=== PATIENT | male | born 1960 | race Caucasian/White ===

== ENCOUNTER → 2017-11-06 | Day surgery (SDC) | payer OTHER ==
[~2017-11-06] MED LIST: ACETYL L-CARNI500 MG PO; ADDERALL; ALLEGRA-D 12 H1 EAC1 PO; CALCIUM 600 +1 EAC1 PO; CHOLESTEROL MED; CINNAMON500 MG PO; FISH OIL 1,001000 M2 PO; FOLIC ACID 40400 MC1 PO; KEFLEX500 MG PO; LOSARTAN POTAS100 MG PO; MAGNESIUM CITR100 MG PO; OMEPRAZOLE40 MG PO; PHENTERMINE H37.5 MG PO; PREDNISONE; PROBIOTIC1 EAC1 PO; SIMVASTATIN40 MG PO; SINGULAIR 10 MG10 M1 PO; SUPER B COMPLE150 MG PO; SYMBICORT80 MCG/4.1 INH; TRAMADOL 50 MG50 MG PO; VENTOLIN HFA 1818 GM INH; VITAMIN E400 UNIT PO; VITAMINC500 PO
[2017-11-06 07:58] LABS: HEMATOCRIT 38.5 % (42.0-52.0); HEMOGLOBIN 13.1 gm/dL (14.0-18.0); MCH 29.7 pg (26.0-34.0); MCHC 34.1 g/dL (28.0-37.0); MCV 87.1 fL (80.0-100.0); MPV 7.9 fl. (7.2-11.1); RBC 4.42 mil/uL (4.50-6.00); RDW-CV 13.8 % (10.5-14.5); WBC 3.8 thou/uL (4.0-11.0)
[2017-11-06 08:04] LABS: CALCIUM 8.4 mg/dL (8.5-10.1); CREATININE 0.9 mg/dL (0.6-1.3); POTASSIUM 4.1 mmol/L (3.5-5.1)
--- NOTE | 2017-11-08 10:08 | PATH ---
[address] [address] PATHOLOGY RPT PROCEDURE Name: GUILLERMINA JEFFERSON Room: [facility]#: [id number] Admission: 11/06/17 Date of : 60 Discharge: Report #: [id number] Path Case #: [id number] [facility] Accession Number: [id number] . 01 Material submitted: . SKIN POSTERIOR NECK . 01 Pre-operative diagnosis: . Cyst left neck . 01 Post-operative diagnosis: . Infected cyst . 02 Diagnosis: Skin, posterior neck: - Benign skin with cystic granuloma associated with chronic and acute inflammation and fibrosis compatible with ruptured epidermal inclusion cyst. . (GRICEL:mml; 11/07/17) [facility]/11/08/2017 . 02 Electronically signed: . Mike Nelson MD, Pathologist NPI- [id number] . 01 Gross description: . Received in formalin "Guillermina Jefferson" and additionally labeled on the requisition as, "skin posterior neck" is an unoriented ellipse of skin measuring 2.1 x 0.7 x 0.5 cm. The specimen is inked, serially sectioned (7 pieces) and entirely submitted A1-A2, A2 tips. (HEMALATHA; 11/06/2017) JBR/JBR . 02 Pathologist provided ICD-10: L72.0 . 02 CPT . 710251 Specimen Comment: A courtesy copy of this report has been sent to Specimen Comment: [phone], . Specimen Comment: Report sent to and Performed at: [address], [place] [id number] MD Don Ghosh MD Phone: [phone] Performed at: [address] [address] PATHOLOGY RPT PROCEDURE Name: GUILLERMINA JEFFERSON Room: [facility]#: [id number] Admission: 11/06/17 Date of : 60 Discharge: Report #: [id number] Path Case #: [id number] [address], [place] [id number] MD Mike Nelson MD Phone: [phone]
--- NOTE | 2017-11-18 10:40 | OP ---
[address] [address] OPERATIVE REPORT Name: GUILLERMINA BOONE Room: [facility]#: [id number] Admission: 11/06/17 Attend Phys: João Barber DO Discharge: Date of : 60 Report #: [id number] THIS REPORT FOR: //name// CC: João Bernal DATE OF SERVICE: 11/06/2017 REFERRING PHYSICIAN: Dr. Arnie Bernal. PREOPERATIVE DIAGNOSIS: Sebaceous cyst of the posterior neck. POSTOPERATIVE DIAGNOSIS: Infected sebaceous cyst of the posterior neck. PROCEDURE: Incision and drainage and debridement of cyst of the posterior neck. SURGEON: João Barber DO. BRAINER: Dr. Ankur Naranjo. SECOND ADMINISTRATOR OF HOME HEALTH: Dr. Ronda Gar. ANESTHESIA: Local with 1% lidocaine with epinephrine. ESTIMATED BLOOD LOSS: 2 mL. COMPLICATIONS: None. DESCRIPTION OF PROCEDURE: After obtaining proper consents and discussing risks and complications with the patient, he was taken to the operating room, laid on the right lateral decubitus position. He was then prepped and draped in the usual fashion. A 25-gauge needle was used to anesthetize the area around the cyst with 1% lidocaine with epinephrine. We then made an elliptical incision over top of the cyst. This was carried down through the skin using electrocautery for hemostasis. Just underneath the skin, we encountered the cyst wall, which was basically quite infected and the cyst wall broke apart immediately. There was some purulent fluid noted within the cyst. This was cultured for anaerobes and aerobes. We then excised the skin over top of the cyst. The entire cyst appeared to be infected. We used a curette to remove all of the cyst wall and debrided the subcutaneous tissues down to a good healthy-appearing tissue. We then copiously irrigated the area with saline solution and then packed the wound with half-inch plain [place] [address] OPERATIVE REPORT Name: GUILLERMINA BOONE Room: [facility]#: [id number] Admission: 11/06/17 Attend Phys: João Barber DO Discharge: Date of : 60 Report #: [id number] sterile dressing was then placed over top of this. The patient was then transported to outpatient surgery area in stable condition. <ELECTRONICALLY SIGNED> By: João Barber DO 11/18/17 1040 [id number] 1046Alamine Barber DO /nt
== END | disposition home or self-care (01) ==
LOC: M.SUR 07:06
PROVIDERS: Surgery
DX: L72.3 Sebaceous cyst (principal); Z79.899 Other long term (current) drug therapy

== ENCOUNTER → 2018-11-16 | Outpatient (CLI) | payer OTHER | LOC: M.RAD 11:35 | DX: I10 Essential (primary) hypertension (principal); Z86.2 Personal history of diseases of the blood and blood-forming organs and certain disorders involving the immune mechanism ==